=== PATIENT | female | born 1965 | race Caucasian/White ===

== ENCOUNTER 2020-02-03 07:48 | Outpatient (CLI) | payer OTHER, SELFPAY | END 2020-02-03 07:49 | disposition home or self-care (01) | LOC: ANHAUDIO 07:50 | PROVIDERS: PCP Family Medicine; Visit Provider Family Medicine | DX: H90.3 Sensorineural hearing loss, bilateral (principal) | CPT/HCPCS: 92557; 92567 ==

== ENCOUNTER 2020-02-11 12:29 | Outpatient (CLI) | payer OTHER, SELFPAY ==
--- NOTE | ~2020-02-11 | XR_ITS ---
XR chest 2V DATE: 02/11/2020 13:49 INDICATION: Wheezing, shortness of breath TECHNIQUE: PA and lateral views COMPARISON: 11/14/2008 two-view chest FINDINGS: Normal heart size. No hilar or mediastinal enlargement. No pulmonary infiltrate or consolid ation, pleural effusion or pulmonary vascular congestion or pneumothorax. IMPRESSION: No active cardiopulmonary disease Reviewed, dictated and finalized at location A.
--- NOTE | 2020-02-19 16:04 | WPDPFTINT ---
PFT Interpretation PFT Interpretation: DOS: 02/11/2020 REQUESTING: Dr Velazquez REASON FOR TESTING: shortness of breath PULMONARY FUNCTION TESTS Results are reproducible. Spirometry: FEV1 102%, FVC 9*%, FEV1% 78%, all normal. No bronchodilator was given. Lung volumes: TLC 107%, normal. RV/TLC increased consistent with air trapping. Normal airway resistance. Diffusion: DLCO 79%. Flow volume loop: Normal. IMPRESSION: Normal spirometry without airflow obstruction, air trapping which suggests an obstructive process. No response to bronchodilator. Cheryle Nunez MD
== END 2020-02-11 12:30 | disposition home or self-care (01) ==
PROVIDERS: PCP Family Medicine; Visit Provider Family Medicine
DX: R06.02 Shortness of breath (principal); J45.909 Unspecified asthma, uncomplicated; F17.200 Nicotine dependence, unspecified, uncomplicated
CPT/HCPCS: 71046; 94375; 94726; 94729

== ENCOUNTER 2020-02-25 12:53 | Outpatient (RCR) | payer OTHER, SELFPAY | END 2020-02-25 23:59 | disposition home or self-care (01) | LOC: ANHAUDIO 12:53 | PROVIDERS: PCP Family Medicine; Visit Provider Family Medicine | DX: Z46.1 Encounter for fitting and adjustment of hearing aid (principal) | CPT/HCPCS: V5160; V5261 ==

== ENCOUNTER 2021-02-13 06:52 | Emergency (ER) | payer OTHER, SELFPAY ==
[2021-02-13 06:58] VITALS: BP 143/94; PULSE 90; RESP 16; TEMP 37; O2SAT 98
[2021-02-13] MEDS: KETOROLAC (*BKC) 60 MG/2 ML VIAL IM (08:21)
[2021-02-13] MEDS: hydrOXYzine HCL 25 MG TABLET 50 MG PO (08:21)
--- NOTE | 2021-02-13 08:23 | ED.DENTAL ---
HPI - Dental/Oral General Chief complaint: Dental/Oral Stated complaint: Dental pain, right jaw pain Time Seen by Provider: 02/13/21 07:45 Source: patient History of Present Illness HPI Narrative: Patient presents with right lower teeth pain started few days ago, was seen by a dentist yesterday, scheduled for root canal. Currently patient on amoxicillin, and tramadol. Patient came to the emergency room because could not sleep last night because of the pain. Patient denies any fever, chills, headache, nausea, vomiting Related Data Home Medications Medication Instructions Recorded Confirmed Hair,Skin and Nails 1 tablet PO BID 04/24/19 10/19/20 famotidine 20 mg PO QID 04/24/19 10/19/20 vitamin E 400 unit PO BID 04/24/19 10/19/20 insulin lispro 100 unit/mL 150 unit SUBCUT .every 3 days ml 06/19/20 10/19/20 subcutaneous pen liraglutide 0.6 mg/0.1 mL (18 mg/3 0.6 mg SUBCUT DAILY 06/19/20 10/19/20 mL) subcutaneous pen injector magnesium 200 mg tablet 400 mg PO DAILY tablet 06/19/20 10/19/20 omega 3-zzm-riy-fish oil 300 2 cap PO DAILY cap 10/19/20 10/19/20 mg-1,000 mg capsule Allergies Allergy/AdvReac Type Severity Reaction Status Date / Time No Known Allergies Allergy Verified 02/13/21 07:06 Review of Systems Review of Systems: CONSTITUTIONAL: Denies fever, chills, or sweats. EYES: Denies visual changes, redness, or discharge. ENT: Denies rhinorrhea, congestion, sore throat, or otalgia. CARDIOVASCULAR: Denies chest pain, palpitations, or edema. RESPIRATORY: Denies cough or dyspnea. GASTROINTESTINAL: Denies abdominal pain, nausea, vomiting, or diarrhea. GENITOURINARY: Denies dysuria or hematuria. SKIN: Denies rash or itching. MUSCULOSKELETAL: Denies back pain, joint pain, or myalgia. NEUROLOGIC: Denies headache, numbness, or weakness. PSYCHIATRIC: Denies anxiety or depression. [facility] Past Medical History Medical History Adhesive capsulitis of both shoulders Arthritis BMI 31.0-31.9,adult Calcific tendinitis of both shoulder regions Depression Diabetes GERD (gastroesophageal reflux disease) Hemoglobin A1c greater than 9.0% last A1c December 2019 was 11 Hyperlipidemia Hypertension LYNDSEY (obstructive sleep apnea) Surgical History Surgical History History of carpal tunnel release Status post trigger finger release Family History Family History Father Diabetes mellitus Grandparent Diabetes mellitus Family history of elevated blood lipids Family history of cardiovascular disease Acute myocardial infarction, Onset Age: 63 Malignant neoplasm of prostate, Onset Age: 70 Mother Asthma Social History Social History Alcohol intake: never Additional occupation/education comments: [email or web address] Gender identity (if verbalized by the patient): Female Exam Narrative: General appearance: Well-developed, well-nourished Skin: Normal color Head: Normocephalic, nontraumatic Eyes: Clear conjunctiva ENT: Oropharynx normal, ears normal, nose normal Neck: Supple, nontender Neurologic: Alert and oriented ?3, 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 Dental caries, no swelling, no discharge 2. 3. 4. Course Course Emergency Course: Stable Vital Signs Vital signs: Vital Signs Temperature 37.0 C 02/13/21 06:58 Pulse Rate 90 02/13/21 06:58 Respiratory Rate 16 02/13/21 06:58 Blood Pressure 143/94 H 02/13/21 06:58 Pulse Oximetry 98 02/03
== END 2021-02-13 08:35 | disposition home or self-care (01) ==
PROVIDERS: Emergency Provider Emergency Medicine; PCP Family Medicine
DX: K04.7 Periapical abscess without sinus (principal); E11.9 Type 2 diabetes mellitus without complications; K21.9 Gastro-esophageal reflux disease without esophagitis; E78.5 Hyperlipidemia, unspecified; I10 Essential (primary) hypertension; G47.33 Obstructive sleep apnea (adult) (pediatric); M19.90 Unspecified osteoarthritis, unspecified site; Z79.4 Long term (current) use of insulin
CPT/HCPCS: 96372; 99283; A9270; J1885

== ENCOUNTER 2021-08-19 08:27 | Outpatient (CLI) | payer OTHER, SELFPAY ==
--- NOTE | 2021-08-30 16:34 | WPDHOMESLEEP ---
Sleep Study - Home Unattended Date of Study: 08/19/21 Ordering Provider: Jovani Sloan APRN Interpreting Provider: Karrie iLra, DO Home Sleep Study Type: Watch PAT Height: 1.65 m Weight: 90.718 kg Body Mass Index: 33.3 Neck Circumference (inches): 14.5 [place]: 18 Reason for Sleep Study Loud snoring, Daytime hypersomnia Sleep History The patient is a 56-year-old female with diabetes hyperlipidemia GERD, depression, alcoholism and previously diagnosed LYNDSEY that had a HSAT ordered by the pulmonary group. The patient was previously diagnosed with sleep apnea and had a CPAP machine but she stopped using it because it was pure her cats. She constantly awakens from sleep short of breath. She frequently awakens at night with heartburn, belching or cough. She constantly snores loud enough that others complain. She frequently has trouble sleeping when she has a cold. She constantly wakes up gasping for air throughout the night. She constantly has breathing problems at night observed by herself or others. She constantly sweats excessively at night. She constantly has heart palpitations or irregular heartbeats during the night. She frequently falls asleep during the day. She rarely falls asleep while driving. She occasionally experiences loss of muscle tone when extremely emotional. She constantly has trouble at school or work due to sleepiness. She frequently feels unable to move while waking up or falling asleep. She constantly experiences vivid dreamlike scenes upon awakening or falling asleep. She constantly has nightmares. She constantly remembers her dreams. She constantly has thoughts racing through her mind. She constantly feels sad, depressed and anxious. She constantly notices parts of her body jerk. She constantly kicks during the night. She constantly experiences crawling and aching feelings in her legs as well as leg pain during the night. She occasionally grinds her teeth during sleep and awakens with morning jaw pain. She is constantly bothered by pain during the day and constantly awakened by pain during the night. She constantly wakes up feeling stiff in the morning with sore or achy muscles. She constantly wakes up with pain in the neck, spine other joints. She goes to bed between 630 and 8:00 p.m. on weekdays and between 9 and 9:30 p.m. on the weekends. It takes her 30 minutes to 2 hours to fall asleep. She wakes up a minimum of 6 times throughout the night to use the restroom. They can take her 5 minutes to 2 hours to fall back asleep. She wakes up between 3 and 4:30 a.m. on weekdays and 6:00 a.m. on the weekends. She typically gets 4 hours of sleep per night. He will stay in bed for a few minutes after waking up in the morning. she currently lives with her parents. She does not consume any caffeinated beverages within 2 hours of bedtime. She does not engage in physical exercise before bedtime. She will watch television before falling asleep. She does not take naps in the afternoon or the evening. She drinks 2 cups of caffeinated beverage per day. She will drink 1 bottle of alcohol per day. She currently smokes half a pack of cigarettes per day. She denies recreational drug use. [facility] Past Medical History Medical History Adhesive capsulitis of both shoulders Arthritis BMI 31.0-31.9,adult Calcific tendinitis of both shoulder regions Depression Diabetes GERD (gastroesophageal reflux disease) Hemoglobin A1c greater than 9.0% last A1c December 2019 was 11 Hyperlipidemia Hypertension LYNDSEY (obstructive sleep apnea) Surgical History Surgical History History of carpal tunnel release Status post trigger finger release Family History Family History Father Diabetes mellitus Grandparent Diabetes mellitus Family history of elevated bl
[2021-08-30 17:08] VITALS: BMI 33.3
== END 2021-08-30 11:37 | disposition home or self-care (01) ==
LOC: ANHCSM 08:28
PROVIDERS: PCP Family Medicine; Visit Provider Nurse Practitioner Family
DX: G47.39 Other sleep apnea (principal)
CPT/HCPCS: 95800

== ENCOUNTER 2022-10-16 08:16 | Emergency (ER) | payer BC, SELFPAY ==
--- NOTE | ~2022-10-16 | XR_ITS ---
EXAMINATION: XR chest 2V 10/16/2022 08:26 INDICATION: Productive cough PROCEDURE: PA and lateral views of the chest COMPARISON: No prior studies for comparison. FINDINGS: The lungs are clear. The cardiomediastinal silhouette is within normal limits. There are no pleural effusions. There is no pneumothorax suspected. IMPRESSION: 1: NO ACUTE CARDIOPULMONARY DISEASE. Reviewed, dictated and finalized at location A.
[2022-10-16 08:35] VITALS: BP 117/74; PULSE 100; RESP 16; TEMP 37.6; O2SAT 99
[2022-10-16 08:56] VITALS: O2SAT 98
--- NOTE | 2022-10-16 09:21 | ECG_ITS ---
Measurements Intervals [place] Rate: 79 P: 66 NE: 136 QRS: 52 QRSD: 86 T: 52 QT: 363 QTc: 418 Interpretive Statements SINUS RHYTHM BASELINE ARTIFACT- V5-V6 NORMAL ECG COMPARED TO ECG 04/26/2019 08:25:47 NO SIGNIFICANT CHANGES Electronically Signed On 10-16-2022 13:28:17 CDT by Eliot Ridley D.O.
--- NOTE | 2022-10-16 09:25 | ED.URI ---
HPI - URI/Sore Throat General Chief Complaint: Upper Respiratory Infection Stated Complaint: COUGH,URI Time Seen by Provider: 10/16/22 08:57 Source: patient Mode of arrival: ambulatory Limitations: no limitations History of Present Illness HPI Narrative: Patient is a 57-year-old female who presents to the ED with report of upper respiratory symptoms x4 days. Patient reports having a cough, congestion, rhinorrhea, sore throat, headache, body aches, sneezing, subjective fevers for the last 4 days. She notes she works at [employer] and has been around other people with similar symptoms. She tested negative for COVID twice at home. She does also report loss of taste and smell, as well as mild dizziness after coughing fits and a couple episodes of posttussive emesis. Patient has been using [id number] cough and cold medicines with minimal relief. Denies any vision changes, syncope, chest pain, shortness of breath, abdominal pain. Related Data Home Medications Medication Instructions Recorded Confirmed famotidine 20 mg tablet 20 mg PO QID 04/24/19 04/30/21 multivit,Ca,min-iron gluconat 1 1 tablet PO BID 04/24/19 04/30/21 mg-FA 66.7 mcg-biotin 1,000 mcg tablet (Hair,Skin and Nails) vitamin E 268 mg (400 unit) capsule 400 unit PO BID 04/24/19 04/30/21 omega 8-izz-jnr-fish oil 300 2 cap PO DAILY 10/19/20 04/30/21 mg-1,000 mg capsule (Fish Oil) cyanocobalamin (vitamin B-12) 1,000 mcg PO DAILY 04/20/21 04/30/21 1,000 mcg tablet blood-glucose meter,continuous 06/16/21 06/16/21 (Dexcom G4 Insurance Billing Specialist) insulin pump cartridge (Omnipod 06/16/21 06/16/21 Dash Insulin Pod) vitamin B complex (B 1 tablet PO DAILY 06/16/21 06/16/21 Complex-Vitamin B12 tablet) blood-glucose sensor (Dexcom G6 #3 ea 12/02/21 Sensor device) blood-glucose transmitter (Dexcom #1 ea 12/02/21 G6 Transmitter device) insulin pump cart,cont inf,BT #5 ea 12/02/21 (Omnipod Dash Pods (Gen 4) subcutaneous cartridge) Allergies Allergy/AdvReac Type Severity Reaction Status Date / Time No Known Allergies Allergy Verified 10/16/22 08:57 Review of Systems Review of Systems: CONSTITUTIONAL: Reports subjective fevers. EYES: Denies visual changes. ENT: See HPI. CARDIOVASCULAR: Denies chest pain, palpitations, or edema. RESPIRATORY: See HPI. GASTROINTESTINAL: See HPI. MUSCULOSKELETAL: Reports myalgia. NEUROLOGIC: See HPI. All systems reviewed & are unremarkable except as noted in HPI and below PMFSH Past Medical History Medical History Adhesive capsulitis of both shoulders Arthritis BMI 31.0-31.9,adult Calcific tendinitis of both shoulder regions Depression Diabetes GERD (gastroesophageal reflux disease) Hemoglobin A1c greater than 9.0% last A1c December 2019 was 11 Hyperlipidemia Hypertension LYNDSEY (obstructive sleep apnea) Surgical History Surgical History History of carpal tunnel release Status post trigger finger release Family History Family History Father Diabetes mellitus Grandparent Diabetes mellitus Family history of elevated blood lipids Family history of cardiovascular disease Acute myocardial infarction, Onset Age: 63 Malignant neoplasm of prostate, Onset Age: 70 Mother Asthma Social History Social History Smoking packs per day: 0.75 Smoking cigarettes per day: 15.0 Years smoked: 10 Smoking pack-years: 7.50 Smoking status: Former smoker Smoking end date: 06/05/17 Alcohol intake: former Alcohol use details: Quit drinking 2018 Living arrangements: with family Occupation/Education: occupation Additional occupation/education comments: [email or web address] Gender identity (if verbalized by the patient): Female Exam N
[2022-10-16] MEDS: BENZONATATE 100 MG CAPSULE 200 MG PO (09:29)
[2022-10-16 09:40] LABS: Influenza A QL RT-PCR Negative (Negative); Influenza B QL RT-PCR Negative (Negative); RSV RNA, RT-PCR Negative (Negative); SARS-CoV-2 RNA PCR Negative (Negative)
[2022-10-16 10:24] LABS: Strep Group A RT-PCR NOT DETECTED (Negative)
[2022-10-16 11:25] VITALS: BP 127/84; PULSE 88
[2022-10-16 11:26] VITALS: BP 116/70; BP 128/79; PULSE 106; PULSE 89
[2022-10-16 12:03] VITALS: BP 118/74; PULSE 99; TEMP 37.1; O2SAT 97
== END 2022-10-16 12:07 | disposition home or self-care (01) ==
PROVIDERS: Emergency Medicine; Emergency Provider Physician Assistant
DX: J06.9 Acute upper respiratory infection, unspecified (principal); Z20.822 Contact with and (suspected) exposure to COVID-19; E11.9 Type 2 diabetes mellitus without complications; E78.5 Hyperlipidemia, unspecified; I10 Essential (primary) hypertension; K21.9 Gastro-esophageal reflux disease without esophagitis; G47.33 Obstructive sleep apnea (adult) (pediatric); M19.90 Unspecified osteoarthritis, unspecified site; Z87.891 Personal history of nicotine dependence; Z79.84 Long term (current) use of oral hypoglycemic drugs
CPT/HCPCS: 71046; 87637; 87651; 93005; 99283; A9270

== ENCOUNTER 2023-05-26 13:55 | Emergency (ER) | payer BC, SELFPAY ==
--- NOTE | ~2023-05-26 | XR_ITS ---
XR humerus RT DATE: 05/26/2023 18:14 INDICATION: Fall. Pain, limited motion. TECHNIQUE: 2 views COMPARISON: 05/26/2023 right shoulder FINDINGS: No fracture or dislocation, periosteal reaction or bone destruction of the right humerus is evident. There is a smooth calcification at the superior aspect of the greater tuberosity, likely tendon calci fication. Normal alignment at the acromioclavicular, glenohumeral and elbow joints. IMPRESSION: No evidence of humeral fracture or dislocation Reviewed, dictated and finalized at location A. [employer]
--- NOTE | ~2023-05-26 | XR_ITS ---
EXAMINATION: XR shoulder RT min 2V INDICATION: Right shoulder pain, possible dislocation TECHNIQUE: Four views of the right shoulder are submitted. COMPARISON: 01/16/2020 FINDINGS: Normal alignment. No fracture. There is moderate osteoarthritis of the glenohumeral and acr omioclavicular joints. A chronic heterotopic ossification projects at the superolateral aspect of the humeral head, likely reflecting tendinous calcification. IMPRESSION: 1. No acute osseous abnormality. Reviewed, dictated and finalized at location B. K SALES REPRESENTATIVE
[2023-05-26 13:58] VITALS: BP 135/69; PULSE 100; RESP 18; TEMP 36.5; O2SAT 100
--- NOTE | 2023-05-26 17:23 | ED.UPPEXIN ---
HPI - Extremity Injury (Upper) General Chief Complaint: Extremity Injury, Upper Stated Complaint: Possible Right Shoulder Dislocation Time Seen by Provider: 05/26/23 17:05 Source: patient Mode of arrival: ambulatory Limitations: no limitations History of Present Illness HPI narrative: 57 yo female who tripped over her cat, landing on her right side. Initially concerned about possible right shoulder dislocation/fracture given pain at this site. On my assessment, she is complaining of pain her but also throughout her humerus, especially at the midshaft. No paresthesias. Related Data Home Medications Medication Instructions Recorded Confirmed famotidine 20 mg tablet 20 mg PO QID 04/24/19 04/30/21 multivit,Ca,min-iron gluconat 1 1 tablet PO BID 04/24/19 04/30/21 mg-FA 66.7 mcg-biotin 1,000 mcg tablet (Hair,Skin and Nails) vitamin E 268 mg (400 unit) capsule 400 unit PO BID 04/24/19 04/30/21 omega 8-evn-otd-fish oil 300 2 cap PO DAILY 10/19/20 04/30/21 mg-1,000 mg capsule (Fish Oil) cyanocobalamin (vitamin B-12) 1,000 mcg PO DAILY 04/20/21 04/30/21 1,000 mcg tablet blood-glucose meter,continuous 06/16/21 06/16/21 (Dexcom G4 Curtains And Draperies Salesperson) insulin pump cartridge (Omnipod 06/16/21 06/16/21 Dash Insulin Pod) vitamin B complex (B 1 tablet PO DAILY 06/16/21 06/16/21 Complex-Vitamin B12 tablet) blood-glucose sensor (Dexcom G6 #3 ea 12/02/21 Sensor device) blood-glucose transmitter (Dexcom #1 ea 12/02/21 G6 Transmitter device) insulin pump cart,cont inf,BT #5 ea 12/02/21 (Omnipod Dash Pods (Gen 4) subcutaneous cartridge) Allergies Allergy/AdvReac Type Severity Reaction Status Date / Time No Known Allergies Allergy Verified 10/16/22 08:57 [facility] Past Medical History Medical History Adhesive capsulitis of both shoulders Arthritis BMI 31.0-31.9,adult Calcific tendinitis of both shoulder regions Depression Diabetes GERD (gastroesophageal reflux disease) Hemoglobin A1c greater than 9.0% last A1c December 2019 was 11 Hyperlipidemia Hypertension LYNDSEY (obstructive sleep apnea) Surgical History Surgical History History of carpal tunnel release Status post trigger finger release Family History Family History Father Diabetes mellitus Grandparent Diabetes mellitus Family history of elevated blood lipids Family history of cardiovascular disease Acute myocardial infarction, Onset Age: 63 Malignant neoplasm of prostate, Onset Age: 70 Mother Asthma Social History Social History Smoking packs per day: 0.75 Smoking cigarettes per day: 15.0 Years smoked: 10 Smoking pack-years: 7.50 Smoking status: Former smoker Smoking end date: 06/05/17 Alcohol intake: former Alcohol use details: Quit drinking 2017 Living arrangements: with family Occupation/Education: occupation Additional occupation/education comments: [employer] Gender identity (if verbalized by the patient): Female Exam Narrative: GENERAL: Well-appearing, well-nourished, and in no acute distress except with manipulation or right arm. Hair dyed purple/pink HEAD: Normocephalic, atraumatic. EYES: Non injected, non icteric ENT: Nares clear, no rhinorrhea or epistaxis. NECK: Supple. CHEST: Speaking in full sentences. No respiratory distress. HEART: Regular rate and rhythm. 2+ radial pulse in R . ABDOMEN: Soft, nondistended. EXTREMITIES: TTP throughout R shoulder girdle and exquisite tenderness to palpation throughout r humerus, especially mid shaft although without obvious bony deformity. Limited ability to demonstrate elbow flexion or extension on the right, 5/5 strength with both on the left. Can not full abduct right shoulder limited secodary to pain
[2023-05-26 17:45] VITALS: BP 127/89; PULSE 88; RESP 19; O2SAT 99
[2023-05-26 18:28] LABS: Glucose Point of Care 107 mg/dl (65-105)
--- NOTE | 2023-05-26 18:45 | PC.NURSE ---
Pts BS checked due to she felt woozy from not eating and was concerned about her sugar because she is diabetic. Pt BS 108 at this time.
== END 2023-05-26 19:03 | disposition left against medical advice (07) ==
PROVIDERS: Emergency Provider Student in an Organized Health Care Education/Training Program; PCP Family Medicine
DX: M79.621 Pain in right upper arm (principal); M25.511 Pain in right shoulder; W18.30XA Fall on same level, unspecified, initial encounter; E78.5 Hyperlipidemia, unspecified; E11.9 Type 2 diabetes mellitus without complications; I10 Essential (primary) hypertension; Z87.891 Personal history of nicotine dependence
CPT/HCPCS: 73030; 73060; 82948; 99283

== ENCOUNTER 2023-09-01 14:54 | Emergency (ER) | payer BC, SELFPAY ==
[2023-09-01] VITALS (43 sets, daily range): BP systolic 71–134; BP diastolic 54–76; PULSE 84–134; RESP 13–23; TEMP 37.2; O2SAT 94–100
--- NOTE | ~2023-09-01 | CT_ITS ---
EXAMINATION: CT brain wo con DATE: 09/01/2023 15:52 INDICATION: Head injury. TECHNIQUE: Computed tomography (CT) of the head was performed without intravenous contrast. The mA wa s adjusted according to patient size. Iterative reconstruction technique was employed. The dose-lengt h product was 1059.33 mGy-cm. COMPARISON: None FINDINGS: There is no intracranial hemorrhage, acute infarction, or abnormal intracranial mass lesion . The ventricles are normal in size. There is left periorbital soft tissue swelling. The orbits are n ormal. The mastoid air cells are normal. There is mild mucosal thickening in the ethmoid sinuses. IMPRESSION: 1. Normal brain. Reviewed, dictated and finalized at location A. IMPRESSION: 1. Normal brain.
--- NOTE | ~2023-09-01 | CT_ITS ---
EXAMINATION: CT facial bones wo con DATE: 09/01/2023 15:52 INDICATION: Facial trauma TECHNIQUE: Computed tomography (CT) of the maxillofacial bones was performed without intravenous cont rast. The dose-length product was 352.47 mGy-cm. Automated exposure control and iterative reconstruction technique were employed. COMPARISON: None FINDINGS: There is left periorbital soft tissue swelling. No acute maxillofacial fractures. Orbits in tact. Paranasal sinuses are pneumatized. No evidence for orbital blowout fracture. Mandible intact. N o nasal fracture. IMPRESSION: 1. No acute facial fracture. Reviewed, dictated and finalized at location B.
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
--- NOTE | 2023-09-01 15:20 | PC.NURSE ---
Pt verbally aggressive and uncooperative with staff, attempting to leave room, unable to be redirected. PT refusing to cooperate for CT scans. MD at bedside.
[2023-09-01] MEDS: LORazepam INJ (*CRX) 2 MG/ML VIAL (15:23)
[2023-09-01] MEDS: HALOPERIDOL LACTATE 5 MG/ML VIAL (15:23)
--- NOTE | 2023-09-01 15:25 | PC.NURSE ---
gave pt 2mg of Ativan IV push and 5mg of Haldol IM per Dr. Park. TEODORO.
[2023-09-01 15:34] LABS: Basophils Absolute Auto 0.1 K/mm3 (0.0-0.1); Basophils Percent Auto 0.7 % (0.2-1.2); Eosinophils Absolute Auto 0.1 K/mm3 (0-0.3); Eosinophils Percent Auto 0.7 % (0-4.4); Hematocrit 41.4 % (37.0-47.0); Immature Granulocyte Absolute 0.06 K/mm3 (0.00-0.031); Immature Granulocyte Percent A 0.6 % (0-0.5); Lymphocytes Absolute Auto 2.58 K/mm3 (0.9-3.2); Lymphocytes Percent Auto 23.9 % (18.3-44.2); Mean Corpuscular HGB Conc 33.8 g/dl (32-36); Mean Corpuscular Hemoglobin 33.9 pg (26-34); Mean Corpuscular Volume 100.2 fl (80-100); Mean Platelet Volume 9.8 fl (7.4-10.4); Monocytes Percent Auto 9.5 % (2.6-8.5); Neutrophils Percent Auto 64.6 % (45.5-73.1); Platelet Count Result 275 k/mm3 (150-375); Red Blood Count 4.13 M/mm3 (4.2-5.4); Red Cell Distribution Width 12.5 % (11.5-14.5); White Blood Count 10.8 K/mm3 (4.5-10.0)
[2023-09-01 15:45] LABS: Acetaminophen < 10 ug/mL (10-30); Ethanol 274 mg/dL (<10); Salicylate < 1.0 mg/dL (2-20)
[2023-09-01 15:54] LABS: Alanine Aminotransferase 65 U/L (6-35); Albumin Level 4.7 g/dL (3.5-5.1); Alkaline Phosphatase 99 U/L (38-126); Anion Gap 16 mmol/L (4-12); Aspartate Amino Transferase 50 U/L (14-36); Bilirubin,Total 0.3 mg/dL (0.2-1.3); Blood Urea Nitrogen 9 mg/dL (7-17); Calcium 8.8 mg/dL (8.4-10.2); Carbon Dioxide 14 mmol/L (22-30); Chloride 100 mmol/L (98-107); Estimated CRCL calculation 80 ml/min; Estimated Glomerular Filt Rate > 60; Glucose 190 mg/dL (65-110); Sodium 130 mmol/L (137-145)
[2023-09-01 16:00] LABS: Appearance Urine Clear (Clear); Bilirubin Urine Negative (Negative); Blood Urine Negative (Negative); Color Urine Yellow (Yellow); Glucose Urine UA 3+ mg/dL (Negative); Ketones Urine Negative (Negative); Leukocyte Esterase Ur Negative LEU/UL (Negative); Nitrate Urine Negative (Negative); Protein Urine Negative (Negative); Specific Grav Ur 1.015 (1.001-1.035); Urobilinogen Urine 0.2 mg/dL (<2.0); pH Urine 5.5 (5.0-9.0)
[2023-09-01 16:07] LABS: Add Urine Microscopic? NO
[2023-09-01 17:18] LABS: Amphetamine Screen Urine Negative (Negative); Barbiturate Screen Urine Negative (Negative); Benzodiazepines Screen Urine Negative (Negative); Cannabinoid Screen Urine Negative (Negative); Cocaine Screen Urine Negative (Negative); Methadone Screen Urine Negative (Negative); Opiate Screen Urine Negative (Negative); Phencyclidine Screen Urine Negative (Negative)
[2023-09-01] MEDS: TETANUS,DIPHTHERIA,AC PERTUSSIS ADULT (0.5 ML) BOOSTRIX IM (18:15)
[2023-09-01 18:45] LABS: Influenza A QL RT-PCR Negative (Negative); Influenza B QL RT-PCR Negative (Negative); RSV RNA, RT-PCR Negative (Negative); SARS-CoV-2 RNA PCR Negative (Negative)
[2023-09-01 18:52] LABS: Glucose Point of Care 100 mg/dl (65-105)
--- NOTE | 2023-09-01 20:35 | PC.NURSE ---
Pt ambulatory to restroom at this time. Pt stating I am ready to go, can I go ahead and leave now. This rn informed her that her blood work would be redrawn at 2200. Once she was below the legal limit, the erp would re-evaluate her.
[2023-09-01 22:18] LABS: Glucose Point of Care 222 mg/dl (65-105)
[2023-09-01 22:43] LABS: Ethanol 11 mg/dL (<10)
--- NOTE | 2023-09-01 23:00 | PC.NURSE ---
Pt denies si/hi at this time. No distress noted.
[2023-09-02 00:46] VITALS: BP 105/65; PULSE 105; RESP 20; O2SAT 100
== END 2023-09-02 00:50 | disposition home or self-care (01) ==
PROVIDERS: Emergency Medicine; Emergency Provider Student in an Organized Health Care Education/Training Program; PCP Family Medicine
DX: S01.81XA Laceration without foreign body of other part of head, initial encounter (principal); F10.129 Alcohol abuse with intoxication, unspecified; Y90.8 Blood alcohol level of 240 mg/100 ml or more; R45.851 Suicidal ideations; Z23 Encounter for immunization; Z11.52 Encounter for screening for COVID-19; I10 Essential (primary) hypertension; E11.9 Type 2 diabetes mellitus without complications; E78.5 Hyperlipidemia, unspecified; G47.33 Obstructive sleep apnea (adult) (pediatric); K21.9 Gastro-esophageal reflux disease without esophagitis; M19.90 Unspecified osteoarthritis, unspecified site; F43.10 Post-traumatic stress disorder, unspecified; Z87.891 Personal history of nicotine dependence; Z79.4 Long term (current) use of insulin; W01.0XXA Fall on same level from slipping, tripping and stumbling without subsequent striking against object, initial encounter
CPT/HCPCS: 36415; 70450; 70486; 80053; 80307; 81003; 82948; 84443; 85025; 87637; 90471; 90715; 96372; 99284; 99285; J1630; J2060

== ENCOUNTER 2024-06-06 07:43 | Outpatient (CLI) | payer BC, SELFPAY | END 2024-06-06 07:44 | disposition home or self-care (01) | LOC: ANHAUDIO 07:44 | PROVIDERS: PCP Family Medicine; Visit Provider Family Medicine | DX: H90.3 Sensorineural hearing loss, bilateral (principal); H93.A3 Pulsatile tinnitus, bilateral; H93.8X3 Other specified disorders of ear, bilateral; H93.93 Unspecified disorder of ear, bilateral; R42 Dizziness and giddiness; Z91.81 History of falling; E11.9 Type 2 diabetes mellitus without complications | CPT/HCPCS: 92557; 92567 ==